=== PATIENT | male | born 1935 | race Caucasian/White ===

== ENCOUNTER 2016-11-15 07:20 | Emergency (ER) | payer MEDICARE, BC ==
[~2016-11-15 07:20] MED LIST: ALBUTEROL2.5 MG/3 M IH; ARFORMOTEROL IH; BP Medication; BYSTOLIC10 MG PO; LEVAQUIN 750MG750 M1 PO; LISINOPRIL20 MG PO; MUCINEX 60600 MG/TA1 PO; PREDNISONE10 MG PO; PREDNISONE20 MG PO; PROVENTIL0.09 MG/A1 IH; PULMICORT0.5 MG/2 M IH; RT ALBUTEROL CC18 GM IH; ZITHROMAX 250M250 MG PO
[2016-11-15] MEDS ORDERED: COZAAR100 MG PO (08:22)
[2016-11-15] MEDS ORDERED: LISINOPRIL AND1 TA1 PO (08:23)
[2016-11-15] MEDS ORDERED: AMARYL PO (08:23)
[2016-11-15] MEDS ORDERED: PROVENTIL0.09 MG/A1 INH (08:24)
[2016-11-15] MEDS ORDERED: MUCINEX 60600 MG/TA1 PO (08:25)
[2016-11-15] MEDS ORDERED: LEADER NATUR1000 MCG PO (08:26)
[2016-11-15] MEDS ORDERED: BROVANA15 MCG/2 M IH (08:27)
[2016-11-15 10:40] VITALS: BP 137/75
== END 2016-11-15 10:04 | disposition other institution (70) ==
LOC: ED 07:20
DX: J44.1 Chronic obstructive pulmonary disease with (acute) exacerbation (principal); R09.02 Hypoxemia; E11.9 Type 2 diabetes mellitus without complications; I10 Essential (primary) hypertension; Z87.891 Personal history of nicotine dependence
CPT/HCPCS: J2930

== ENCOUNTER 2016-11-15 09:52 | Inpatient (IN) | payer MEDICARE, BC ==
[~2016-11-15 09:52] MED LIST changes: +AMARYL PO; +BROVANA15 MCG/2 M IH; +COZAAR100 MG PO; +LEADER NATUR1000 MCG PO; +LISINOPRIL AND1 TA1 PO; +PROVENTIL0.09 MG/A1 INH
[2016-11-15 10:39] VITALS: BP 137/75
[2016-11-15 15:14] VITALS: BP 118/66
[2016-11-15 18:54] VITALS: BP 117/71
[2016-11-15 23:19] VITALS: BP 105/55
[2016-11-16 02:42] VITALS: BP 104/53
[2016-11-16 06:28] VITALS: BP 128/58
[2016-11-16 11:30] VITALS: BP 133/72
[2016-11-16 14:59] VITALS: BP 145/81
[2016-11-16 18:53] VITALS: BP 148/83
[2016-11-16 23:00] VITALS: BP 131/64
[2016-11-17 02:55] VITALS: BP 117/66
[2016-11-17 06:23] VITALS: BP 146/75
[2016-11-17] MEDS ORDERED: RT SPIRIVA INH18 MCG IH (10:48)
[2016-11-17] MEDS ORDERED: BUDESONIDE0.5 MG/2 M IH (10:49)
[2016-11-17] MEDS ORDERED: PREDNISONE10 MG PO (10:51)
[2016-11-17 11:17] VITALS: BP 122/61
== END 2016-11-17 13:53 | disposition home or self-care (01) | DRG 192 ==
LOC: MED/SURG 09:52
PROVIDERS: ADMIT Physician Assistant
DX: J44.1 Chronic obstructive pulmonary disease with (acute) exacerbation (principal); R09.02 Hypoxemia; Z66 Do not resuscitate; E11.9 Type 2 diabetes mellitus without complications; I10 Essential (primary) hypertension; Z87.891 Personal history of nicotine dependence; Z79.84 Long term (current) use of oral hypoglycemic drugs; Z99.81 Dependence on supplemental oxygen
CPT/HCPCS: J1650; J1815; J2930

== ENCOUNTER → 2016-11-25 | Outpatient (CLI) | payer MEDICARE, BC ==
[~2016-11-25] MED LIST changes: +BUDESONIDE0.5 MG/2 M IH; +RT SPIRIVA INH18 MCG IH
== END ==
LOC: LAB 07:46
DX: R97.20 Elevated prostate specific antigen [PSA] (principal); E11.9 Type 2 diabetes mellitus without complications

== ENCOUNTER → 2017-05-03 | Day surgery (SDC) | payer MEDICARE, BC | LOC: MSO 07:21 | DX: H25.11 Age-related nuclear cataract, right eye (principal); I10 Essential (primary) hypertension; J44.9 Chronic obstructive pulmonary disease, unspecified; F17.210 Nicotine dependence, cigarettes, uncomplicated; Z99.81 Dependence on supplemental oxygen; E11.8 Type 2 diabetes mellitus with unspecified complications; Z79.84 Long term (current) use of oral hypoglycemic drugs | CPT/HCPCS: 00142; A9270-GY; J0171; V2632; V2797 ==

== ENCOUNTER → 2017-05-31 | Outpatient (CLI) | payer MEDICARE, BC | LOC: LAB 10:38 | DX: E11.9 Type 2 diabetes mellitus without complications (principal); I10 Essential (primary) hypertension; J43.9 Emphysema, unspecified ==

== ENCOUNTER → 2017-05-31 | Day surgery (SDC) | payer MEDICARE, BC | LOC: MSO 07:59 | DX: H25.12 Age-related nuclear cataract, left eye (principal); E11.36 Type 2 diabetes mellitus with diabetic cataract; Z79.84 Long term (current) use of oral hypoglycemic drugs; I10 Essential (primary) hypertension; J44.9 Chronic obstructive pulmonary disease, unspecified; F17.210 Nicotine dependence, cigarettes, uncomplicated; Z99.81 Dependence on supplemental oxygen | CPT/HCPCS: 00142; A9270-GY; J0171; J2550; V2632; V2797 ==

== ENCOUNTER 2017-08-12 23:24 | Observation (INO) | payer MEDICARE, BC ==
[~2017-08-12] VITALS: Ht 170.2 cm; Wt 52.7 kg
[2017-08-12 23:53] LABS: EOS # 0.1 (0.04-0.40); EOS % 0.7 % (0.0-4.0); HEMATOCRIT 24.2 % (42.0-52.0); LYMPH# 1.6 (1.50-4.00); MEAN CELL VOLUME 101 fl (78-100); MEAN CORPUSCULAR HEMOGLOBIN 32 pg (27-31); MEAN CORPUSCULAR HGB CONC 32 g/dL (33-37); MEAN PLATELET VOLUME 9.3 fl (7.4-10.4); MONO # 0.7 (0.20-0.80); NEU # 8.4 (1.40-6.50); PLATELET COUNT 306 K/mm3 (130-400); RED CELL DISTRIBUTION WIDTH 12.2 % (11.5-14.5); WHITE BLOOD COUNT 10.8 K/mm3 (4.8-10.8)
[2017-08-12 23:59] LABS: HEMOGLOBIN 7.7 g/dL (13.5-18.0)
[2017-08-13] VITALS (29 sets, daily range): BP systolic 80–133; BP diastolic 51–92
[2017-08-13 00:08] LABS: ALBUMIN 3.1 g/dL (3.5-5.0); POTASSIUM 5.4 mmol/L (3.6-5.0); TOTAL PROTEIN 5.6 g/dL (6.3-8.2)
[2017-08-13 00:09] LABS: TOTAL BILIRUBIN 0.3 mg/dL (0.2-1.3)
--- NOTE | 2017-08-13 00:30 | NUR ---
PATIENT ADMITTED TO OBSERVATION ROOM 205 AT THIS TIME. PATIENT IS TRANSPORTED VIA WHEELCHAIR. PATIENT REMAINS MILDLY WEAK AND MODERATELY SOB, ESPECIALLY UPON EXERTION, BUT RECOVERS AFTER SOME REST AND HOB ELEVATION. PATIENT IS INCREASED TO 5L/MIN O2 VIA NC DUE TO SLOW RECOVERY AFTER THE INITIAL TRANSFER TO INPATIENT BED. AFTER GETTING COMFORTABLE AND RESTING, PATIENT IS DECREASED BACK DOWN TO 3 L/MIN. PATIENT REQUIRES STANDBY TO X1 ASSIST. HOB ELEVATED TO A 75 DEGREE ANGLE. BED RAILS UP X2. BED ALARM ARMED. CALL LIGHT WITHIN REACH. PATIENT ORIENTED TO ROOM. CLOSE MONITORING AND HOURLY ROUNDING IMPLEMENTED.
[2017-08-13] MEDS ORDERED: AMARYL 2MG T2 MG/TAB PO (01:53)
[2017-08-13] MEDS ORDERED: ZESTORETIC 25 M1 TAB PO (01:53)
[2017-08-13] MEDS ORDERED: BUDESONIDE0.25 MG/2 (01:54)
[2017-08-13] MEDS ORDERED: BROVANA15 MCG/2 M (01:55)
[2017-08-13] MEDS ORDERED: PROAIR HFA0.09 MG/AC IH (01:56)
[2017-08-13] MEDS ORDERED: ASPIRIN 81M81 MG/TA2 PO (01:58)
[2017-08-13] MEDS ORDERED: BROVANA15 MCG/2 M IH (01:58)
[2017-08-13] MEDS ORDERED: PULMICORT0.5 MG/2 M IH (01:58)
--- NOTE | 2017-08-13 03:07 | NUR ---
Resting in bed, bed alarm set. Oriented to room and call light system. Instructed pt to please use call light when needing to get up out of bed, pt agreed. and daughter at bed side. 0135 Int started in left medial forearm. IV catheter used 18 gauge. Tolerated without difficulty. 0140 Bandaid noted on left upper coccyx. Bandaid removed. Skin abrasion noted on left posterior aspect of iliac crest. Size 0.5cm, skin pink in color. Abrasion cleaned with wound cleanser and hydrocolliod dressing. 0200 C/o of feeling SOB, from answering admission, Oxygen increased from 3 liters to 4 Liters per pt request. Sa02 99-100% on 3L/NC. 0305 Sa02 100%, respirations 18, pulse 107. States he "feels better."
--- NOTE | 2017-08-13 03:42 | NUR ---
[facility] START[facility] AT THIS [facility]. PATIENT SIGNS CONSENT AND UNDERSTANDS EDUCATION PROVIDED. PATIENT DOES NOT APPEAER TO BE IN ANY OBVIOUS DISTRESS AT THIS TIME.
--- NOTE | 2017-08-13 05:53 | NUR ---
PATIENT CONTINUES TO REST IN BED QUIETLY. PATIENT DOES NOT APPEAR TO BE IN ANY OBVIOUS DISTRESS AT THIS TIME. PATIENT STATES "I FEEL MUCH BETTER ALREADY". PATIETN IS ALERT AND ORIENTED, PLEASANT AND COOPERATIVE. PATIENT SHIFTS HIS POSITION INDEPENDENTLY THROUGHOUT THE NIGHT. PATIENT CONTINUES TO RECEIVE BLOOD PRODUCTS AT THIS TIME. PATIENT IS ALSO ON CONTINUOUS VITALS MONITORING. PATIENT ALSO CONTINUES ON O2 THERAPY AT 3L/MIN VIA NC. HOB ELEVATED AT A 30 DEGREE ANGLE. BED RAILS UP X2. CALL LIGHT WITHIN REACH. BED ALARM ARMED AT ALL TIMES. CLOSE MONITORING AND Q30 MINUTE ROUNDING CONTINUE AT THIS TIME.
--- NOTE | 2017-08-13 06:40 | NUR ---
1ST BAG OF [facility] FINISHED INFUSING. PATIENT TOLERATED WELL WITH NO EFFECTS. PATIENT DOES NOT APPEAR TO BE IN ANY OBVIOUS DISTRESS. HIS SKIN IS MORE PINK AND NOT PALE IN THE ER.
--- NOTE | 2017-08-13 07:06 | NUR ---
REPORT GIVEN TO HILTON Fraser RN.
--- NOTE | 2017-08-13 07:20 | NUR ---
REPORT RECEIVED FROM HAFSA LITTLE
--- NOTE | 2017-08-13 07:20 | NUR ---
2ND UNIT OF [facility] STARTED. RATE INCREASED TO 125 ML/HR AFTER NO REACTION NOTED THE FIRST 15 MINUTES.
--- NOTE | 2017-08-13 07:45 | NUR ---
REPORT RECEIVED FROM HAFSA LITTLE. 2ND UNIT [facility] STARTED AT 0720 BY HAFSA LITTLE AND RN REMAINED AT PATIENT'S BEDSIDE DURING FIRST 15 MINUTES OF INFUSION PER POLICY. PATIENT'S BLOOD INFUSING AT 125MLS/HR. PATIENT CARE ASSUMED.
--- NOTE | 2017-08-13 07:55 | NUR ---
PATIENT'S SHIFT ASSESSMENT COMPLETE. PATIENT ALERT AND ORIENTED X4. DENIES ANY PAIN OR DISCOMFORTS AT THIS TIME. PATIENT HAS TRANSFUSION OF [facility] INFUSING AT 125 MLS/HR TO IV IN LEFT FOREARM. PATIENT TOLERATING TRANSFUSION WELL. NO ADVERSE REACTION NOTED AT THIS TIME. PATIENT ON EVERY 15 MINUTE VITAL SIGNS. PATIENT ON OXYGEN VIA NASAL CANNULA 2L. WHEN ASKED IF HE WAS EXPERIENCING SHORTNESS OF BREATH STATES "DID BEFORE". WHEN ASKED IF DIFFICULTY BREATHING HAS GOTTEN ANY BETTER AFTER GETTING BLOOD STATES THAT HE "THINKS IT HAS" REPORTS HAVING SHORTNESS OF BREATH UPON EXERTION. LUNGS DIMINISHED IN ALL [place]AR[place]. PATIENT HAS DUODERM DRESSING TO LEFT BUTTOCK. PATIENT'S BOWEL SOUNDS AUDIBLE IN ALL QUADRANTS. CALL LIGHT WITHIN REACH. BED ALARM ON.
--- NOTE | 2017-08-13 08:30 | NUR ---
IN TO SEE PATIENT.
--- NOTE | 2017-08-13 08:45 | NUR ---
PATIENT'S NORMAL SALINE BOLUS STARTED AT THIS TIME PER 'S ORDERS FOR PATIENT'S LOW BLOOD PRESSURES AND INCREASED POTASSIUM.
[2017-08-13 09:02] LABS: BUN/CREATININE RATIO 39.8 (6.0-26.0); CALCIUM 7.9 mg/dL (8.4-10.2); POTASSIUM 5.4 mmol/L (3.6-5.0)
--- NOTE | 2017-08-13 09:15 | NUR ---
PATIENT'S TRANSFUSION RUNNING AT 125 MLS/HR WITHOUT DIFFICULTY. NO ADVERSE REACTION NOTED AT THIS TIME. CONTINUING TO OBTAIN EVERY 15 MIN VITAL SIGNS. WILL CONTINUE TO MONITOR PATIENT.
--- NOTE | 2017-08-13 09:45 | NUR ---
IN WITH PATIENT AT THIS TIME.
--- NOTE | 2017-08-13 10:13 | NUR ---
PATIENT'S SECOND BLOOD TRANSFUSION DONE AT THIS TIME. VITAL SIGNS TEMP 98.4 TEMPORAL,HEART RATE 85,SPO2 100% ON 2L OXYGEN VIA NASAL CANNULA. BLOOD PRESSURE 100/56, RR 18. PATIENT TOLERATED INFUSION WELL. NO ADVERSE REACTION NOTED AT THIS TIME.
[2017-08-13 11:21] LABS: HEMATOCRIT 28.4 % (42.0-52.0); HEMOGLOBIN 9.6 g/dL (13.5-18.0); MEAN CELL VOLUME 97 fl (78-100); MEAN CORPUSCULAR HEMOGLOBIN 33 pg (27-31); MEAN CORPUSCULAR HGB CONC 34 g/dL (33-37); MEAN PLATELET VOLUME 8.9 fl (7.4-10.4); PLATELET COUNT 191 K/mm3 (130-400); RED BLOOD COUNT 2.94 M/mm3 (4.20-5.60); RED CELL DISTRIBUTION WIDTH 13.1 % (11.5-14.5); WHITE BLOOD COUNT 11.9 K/mm3 (4.8-10.8)
[2017-08-13 11:41] LABS: BAND 0 % (0-10); LYMPHOCYTE 9 % (20-51); MONOCYTE 5 % (3-10); NEUTROPHILS 86 % (42-75)
--- NOTE | 2017-08-13 18:00 | NUR ---
[facility] HE[facility] UN[facility] LEAD PSYCHOLOGIST REPORTED THAT THE LAST TIME PATIENT WAS TAKEN TO THE BATHROOM PATIENT HAD BLOODY LARGE BOWEL MOVEMENT. STOOL WAS VERY DARK RED BLOOD. MENTAL HEALTH UNIT LEAD PSYCHOLOGIST REPORTS THAT ENTIRE TOILET BOWEL WAS COVERED IN BLOOD. NOTIFIED. VITAL SIGNS OBTAINED.
--- NOTE | 2017-08-13 18:00 | NUR ---
PATIENT HAS ASKED SEVERAL TIMES THROUGHOUT THE DAY ABOUT WHAT IS CAUSING HIM TO BE BLEEDING AND IF IT WAS THE ASPIRIN THAT HE WAS TAKING. STATES THAT HE "ISN'T GOING TO TAKE ASPIRIN ANYMORE AFTER THIS I WAS JUST TAKING IT BECAUSE MY TOOTH WAS HURTING BUT IT STOPPED HURTING" PATIENT ASKED THIS NURSE ABOUT TAKING ALEVE INSTEAD OF ASPIRIN. STATES "I'VE HEARD THAT ALEVE WORKS PRETTY GOOD AND IS BETTER THAN ASPIRIN DO YOU THINK IT'S OKAY IF I TOOK THAT" PATIENT EDUCATED ON ASPIRIN AND ALEVE. INFORMED PATIENT THAT ALEVE ALSO HAS THE RISK OF CAUSING GI BLEEDING AND ULCERS. IMPORTANCE OF STOPPING ASPIRIN STRESSED TO PATIENT. PATIENT REPORTS TO THIS NURSE THAT HE HAS BEEN TAKING MASSIEL ASPIRIN 325MG TABLETS A COUPLE TIMES A DAY FOR TOOTH PAIN.
[2017-08-13 18:36] LABS: EOS # 0.1 (0.04-0.40); EOS % 0.9 % (0.0-4.0); HEMATOCRIT 28.7 % (42.0-52.0); HEMOGLOBIN 9.7 g/dL (13.5-18.0); LYMPH# 1.2 (1.50-4.00); MEAN CELL VOLUME 95 fl (78-100); MEAN CORPUSCULAR HEMOGLOBIN 32 pg (27-31); MEAN CORPUSCULAR HGB CONC 34 g/dL (33-37); MEAN PLATELET VOLUME 9.6 fl (7.4-10.4); MONO # 0.9 (0.20-0.80); PLATELET COUNT 197 K/mm3 (130-400); RED BLOOD COUNT 3.01 M/mm3 (4.20-5.60); RED CELL DISTRIBUTION WIDTH 13.5 % (11.5-14.5); WHITE BLOOD COUNT 10.3 K/mm3 (4.8-10.8)
[2017-08-13 19:02] LABS: BUN/CREATININE RATIO 41.9 (6.0-26.0); CALCIUM 7.9 mg/dL (8.4-10.2); POTASSIUM 4.6 mmol/L (3.6-5.0)
--- NOTE | 2017-08-13 19:11 | NUR ---
REPORT GIVEN TO HAFSA DUMONT
--- NOTE | 2017-08-13 19:15 | NUR ---
Report received from Michael Salcedo RN and care assumed at this time. Pt resting in bed, no needs or concerns at this time. Call light in reach, bed alarm on.
--- NOTE | 2017-08-13 20:06 | NUR ---
Pt's IV had been pulled most of the way out accidentally by pt. IV removed from left forearm. New IV started in right forearm.
--- NOTE | 2017-08-14 00:26 | NUR ---
Pt resting in bed with eyes closed and no signs of distress or discomfort noted. Call light in reach, bed alarm on, oxygen remains in place at 2 L/min via nasal canula.
--- NOTE | 2017-08-14 01:07 | NUR ---
Report given to Adriana Joy, AIR HOSE COUPLER and care transferred at this time.
--- NOTE | 2017-08-14 01:17 | NUR ---
Report recieved from Shauna PEREYRA. Patient resting with eyes closed. IVF infusing at 100 ML/HR. No signs of pain or distress.
[2017-08-14 03:20] VITALS: BP 92/55
--- NOTE | 2017-08-14 04:04 | NUR ---
Rests with eyes closed. No signs of pain or distress. IVF infusing at 100 ML/HR.
--- NOTE | 2017-08-14 05:44 | NUR ---
Up to BR with SBA. Voids 400 ML clear yellow urine. Passing alot of gas. Assisted back to bed. Denies pain. Requests and given cup of coffee. Bed alarm on. Call light in reach.
[2017-08-14 06:29] VITALS: BP 106/53
[2017-08-14 06:57] LABS: BASO # 0.1 (0.02-0.10); EOS # 0.4 (0.04-0.40); EOS % 4.2 % (0.0-4.0); HEMATOCRIT 26.2 % (42.0-52.0); HEMOGLOBIN 8.5 g/dL (13.5-18.0); LYMPH# 1.2 (1.50-4.00); MEAN CELL VOLUME 97 fl (78-100); MEAN CORPUSCULAR HEMOGLOBIN 32 pg (27-31); MEAN CORPUSCULAR HGB CONC 32 g/dL (33-37); MEAN PLATELET VOLUME 9.3 fl (7.4-10.4); MONO # 0.6 (0.20-0.80); NEU # 6.4 (1.40-6.50); PLATELET COUNT 186 K/mm3 (130-400); RED CELL DISTRIBUTION WIDTH 13.4 % (11.5-14.5); WHITE BLOOD COUNT 8.6 K/mm3 (4.8-10.8)
--- NOTE | 2017-08-14 07:02 | NUR ---
Report to Dang PEREYRA.
[2017-08-14 07:09] LABS: CALCIUM 7.9 mg/dL (8.4-10.2); POTASSIUM 4.2 mmol/L (3.6-5.0)
--- NOTE | 2017-08-14 07:10 | NUR ---
REPORT RECEIVED FROM TOÑA COLES LPN.
--- NOTE | 2017-08-14 07:45 | NUR ---
Patient's shift assessment complete. patient alert and oriented x4. denies any pain or discomforts at this time. reports that he had a good night and that he slept really well. reports that he is "feeling a little better" today. on oxygen via nasal cannula at 2.5 L. patient's color pale has dark circles around eyes.
--- NOTE | 2017-08-14 09:30 | NUR ---
GIANFRANCO GREEN APRN IN WITH PATIENT AT THIS TIME. CODE STATUS DISCUSSED. COPY OF PATIENT'S LIVING WILL OBTAINED FROM 'S OFFICE AND PLACED IN PATIENT'S PAPER CHART.
--- NOTE | 2017-08-14 09:30 | NUR ---
GIANFRANCO ALFONSO APRN IN WITH PATIENT AT THIS TIME. CODE STATUS DISCUSSED. COPY OF PATIENT'S LIVING WILL OBTAINED FROM 'S OFFICE AND PLACED IN PATIENT'S PAPER CHART.
--- NOTE | 2017-08-14 09:45 | NUR ---
patient up to bathroom. had large bloody soft formed bowel movement. stool very dark red. ephraim saba aprn notified.
--- NOTE | 2017-08-14 10:45 | NUR ---
AT PATIENT'S BEDSIDE. L
--- NOTE | 2017-08-14 11:00 | NUR ---
in to see patient. doctor thinks cause of bleeding is from the aspirin patient had been taking which has been stopped. plan is for patient to continue taking iv protonix. recheck labs tomorrow morning. and that plan is for patient to be discharged tomorrow if his hemoglobin level remains stable.
[2017-08-14 11:02] VITALS: BP 140/69
--- NOTE | 2017-08-14 14:00 | NUR ---
patient ambulated in the [place]. ambulated approximately 150 ft ambulates standby assist with gait belt. on oxygen via nasal cannula at 3L. sp02 in the upper 90's prior to walking. sp02 went down to 84% with ambulation. patient reported that he started feeling short of breath towards the end of walk. reported that he did not feel anymore short of breath during walk than his baseline. reports that the amount of distance he was able to tolerate is what he is able to do at home. reports feeling ready to go home tomorrow.
[2017-08-14 15:15] VITALS: BP 128/67
--- NOTE | 2017-08-14 16:00 | NUR ---
patient up to bathroom. had medium soft formed bloody bowel movement. stool very dark red. voided 450 mls of clear yellow urine
--- NOTE | 2017-08-14 17:10 | NUR ---
Spoke w/ Dr Stallworth about pt being over 24 hrs of OBS stay, Dr Stallworth states that he wishes to check pt's H&H in am and if it is stable pt will be discharged to home and at this time his plan is to keep pt in OBS stay.
[2017-08-14 17:51] VITALS: BP 134/74
--- NOTE | 2017-08-14 19:20 | NUR ---
report given to jacob robertson
--- NOTE | 2017-08-14 22:00 | NUR ---
PATIENT RESTING IN BED. SHIFT ASSESSMENT COMPLETED AT THIS TIME. PATIENT A/O X4, DENIES PAIN. LUNGS CTA, DYSPNEA NOTED WITH AMBULATION AND PATIENT STATES PRODUCTIVE COUGH "HERE AND THERE" WITH WHITE, THICK SPUTUM. O2 @ 2.5 LITERS VIA NASAL CANNULA. BILAT ELBOWS DRY, FLAKY, AND REDDENED. 18 G INT IN RIGHT FA FLUSHES EASILY WITH GOOD BLOOD RETURN, DRESSING CDI. PATIENT STATES HE IS HOPING HE GETS TO GO HOME TOMORROW. PATIENT WITHOUT NEEDS. CALL LIGHT WITHIN REACH AND BED ALARM ON.
[2017-08-14 23:21] VITALS: BP 109/55
[2017-08-15 02:47] VITALS: BP 129/75
[2017-08-15 06:10] LABS: EOS # 0.4 (0.04-0.40); EOS % 4.1 % (0.0-4.0); HEMATOCRIT 29.7 % (42.0-52.0); HEMOGLOBIN 9.6 g/dL (13.5-18.0); LYMPH# 1.2 (1.50-4.00); MEAN CELL VOLUME 98 fl (78-100); MEAN CORPUSCULAR HEMOGLOBIN 32 pg (27-31); MEAN CORPUSCULAR HGB CONC 32 g/dL (33-37); MEAN PLATELET VOLUME 9.2 fl (7.4-10.4); MONO # 0.6 (0.20-0.80); NEU # 6.4 (1.40-6.50); PLATELET COUNT 232 K/mm3 (130-400); RED BLOOD COUNT 3.02 M/mm3 (4.20-5.60); RED CELL DISTRIBUTION WIDTH 13.4 % (11.5-14.5); WHITE BLOOD COUNT 8.7 K/mm3 (4.8-10.8)
[2017-08-15 06:21] LABS: BUN/CREATININE RATIO 25.9 (6.0-26.0); CALCIUM 8.8 mg/dL (8.4-10.2); POTASSIUM 4.5 mmol/L (3.6-5.0)
[2017-08-15 06:32] VITALS: BP 138/81
[2017-08-15] MEDS ORDERED: PROTONIX I40 MG/VIAL IV (10:01)
[2017-08-15 11:11] VITALS: BP 139/91
--- NOTE | 2017-08-15 13:20 | NUR ---
Patient alert and oriented. Denies pain. States that he is feeling much better now than he did when he was admitted. Assisted with shower before lunch. Clean mepilex dressing applied to open area on left buttock. Patient states that he usually covers it with a bandaid at home. Oxygen at 2.5 liters via nasal cannula. Discharge instructions provided to patient and . Written lab orders provided. Prescription for protonix sent to [facility]. Patient and verbalize understanding and deny questions or needs at this time. Out of facility via wheelchair to POV, patient's own portable oxygen tank at 2.5 liters via nasal cannula. Transfers into PO without incident.
== END 2017-08-15 13:20 | disposition home or self-care (01) ==
LOC: ED 23:24 → MED/SURG 08-13 00:30
PROVIDERS: Nurse Practitioner Family; ADMIT Family Medicine
DX: K92.2 Gastrointestinal hemorrhage, unspecified (principal); T39.015A Adverse effect of aspirin, initial encounter; D50.0 Iron deficiency anemia secondary to blood loss (chronic); J43.9 Emphysema, unspecified; Z87.891 Personal history of nicotine dependence; E11.9 Type 2 diabetes mellitus without complications; Z99.81 Dependence on supplemental oxygen; I10 Essential (primary) hypertension; Z79.84 Long term (current) use of oral hypoglycemic drugs
CPT/HCPCS: C9113; G0378; J3490; J7030; J7040; P9016

== ENCOUNTER → 2017-08-21 | Outpatient (CLI) | payer MEDICARE, BC ==
[2017-08-15 11:11] VITALS: BP 139/91
[~2017-08-21] MED LIST changes: +AMARYL 2MG T2 MG/TAB PO; +ASPIRIN 81M81 MG/TA2 PO; +BROVANA15 MCG/2 M; +BUDESONIDE0.25 MG/2; +PROAIR HFA0.09 MG/AC IH; +PROTONIX I40 MG/VIAL IV; +ZESTORETIC 25 M1 TAB PO
[2017-08-21 09:05] LABS: HEMATOCRIT 32.6 % (42.0-52.0); HEMOGLOBIN 10.3 g/dL (13.5-18.0); MEAN PLATELET VOLUME 8.5 fl (7.4-10.4); RED BLOOD COUNT 3.21 M/mm3 (4.20-5.60); WHITE BLOOD COUNT 7.5 K/mm3 (4.8-10.8)
[2017-08-21 09:14] LABS: ALBUMIN 3.9 g/dL (3.5-5.0); BUN/CREATININE RATIO 19.8 (6.0-26.0); CALCIUM 8.8 mg/dL (8.4-10.2); POTASSIUM 4.2 mmol/L (3.6-5.0); TOTAL BILIRUBIN 0.5 mg/dL (0.2-1.3); TOTAL PROTEIN 6.9 g/dL (6.3-8.2)
== END ==
LOC: LAB 08:48
PROVIDERS: Physician Assistant
DX: D64.9 Anemia, unspecified (principal); R06.00 Dyspnea, unspecified; E11.9 Type 2 diabetes mellitus without complications; Z87.19 Personal history of other diseases of the digestive system

== ENCOUNTER → 2017-09-04 | Outpatient (CLI) | payer MEDICARE, BC ==
[2017-08-15 11:11] VITALS: BP 139/91
[2017-09-04 08:58] LABS: EOS # 0.2 (0.04-0.40); EOS % 2.1 % (0.0-4.0); HEMATOCRIT 34.7 % (42.0-52.0); HEMOGLOBIN 10.7 g/dL (13.5-18.0); LYMPH# 0.9 (1.50-4.00); MEAN CELL VOLUME 102 fl (78-100); MEAN CORPUSCULAR HEMOGLOBIN 31 pg (27-31); MEAN CORPUSCULAR HGB CONC 31 g/dL (33-37); MEAN PLATELET VOLUME 8.3 fl (7.4-10.4); MONO # 0.4 (0.20-0.80); NEU # 5.6 (1.40-6.50); PLATELET COUNT 257 K/mm3 (130-400); RED BLOOD COUNT 3.42 M/mm3 (4.20-5.60); RED CELL DISTRIBUTION WIDTH 12.9 % (11.5-14.5); WHITE BLOOD COUNT 7.1 K/mm3 (4.8-10.8)
[2017-09-04 09:23] LABS: ALBUMIN 4.1 g/dL (3.5-5.0); BUN/CREATININE RATIO 20.1 (6.0-26.0); CALCIUM 8.8 mg/dL (8.4-10.2); POTASSIUM 4.3 mmol/L (3.6-5.0); TOTAL BILIRUBIN 0.5 mg/dL (0.2-1.3); TOTAL PROTEIN 7.4 g/dL (6.3-8.2)
== END ==
LOC: LAB 08:47
PROVIDERS: Internal Medicine
DX: I10 Essential (primary) hypertension (principal); E11.9 Type 2 diabetes mellitus without complications; D64.9 Anemia, unspecified

== ENCOUNTER → 2017-10-09 | Outpatient (CLI) | payer MEDICARE, BC ==
[2017-10-09 12:12] LABS: HEMATOCRIT 36.9 % (42.0-52.0); HEMOGLOBIN 11.5 g/dL (13.5-18.0); MEAN CELL VOLUME 100 fl (78-100); MEAN CORPUSCULAR HEMOGLOBIN 31 pg (27-31); MEAN CORPUSCULAR HGB CONC 31 g/dL (33-37); MEAN PLATELET VOLUME 8.7 fl (7.4-10.4); PLATELET COUNT 381 K/mm3 (130-400); RED BLOOD COUNT 3.71 M/mm3 (4.20-5.60); RED CELL DISTRIBUTION WIDTH 12.7 % (11.5-14.5); WHITE BLOOD COUNT 9.5 K/mm3 (4.8-10.8)
[2017-10-09 12:18] LABS: ALBUMIN 4.2 g/dL (3.5-5.0); BUN/CREATININE RATIO 17.5 (6.0-26.0); CALCIUM 9.2 mg/dL (8.4-10.2); POTASSIUM 4.5 mmol/L (3.6-5.0); TOTAL BILIRUBIN 0.5 mg/dL (0.2-1.3)
[2017-10-09 12:45] LABS: LYMPHOCYTE 11 % (20-51); MONOCYTE 2 % (3-10); NEUTROPHILS 87 % (42-75)
== END ==
LOC: LAB 11:47
PROVIDERS: Internal Medicine
DX: D50.8 Other iron deficiency anemias (principal); E11.9 Type 2 diabetes mellitus without complications; J43.8 Other emphysema

== ENCOUNTER → 2018-01-08 | Outpatient (CLI) | payer MEDICARE, BC ==
[2018-01-08 11:16] LABS: HEMATOCRIT 37.9 % (42.0-52.0); HEMOGLOBIN 12.1 g/dL (13.5-18.0); MEAN CELL VOLUME 96 fl (78-100); MEAN CORPUSCULAR HEMOGLOBIN 31 pg (27-31); MEAN CORPUSCULAR HGB CONC 32 g/dL (33-37); PLATELET COUNT 357 K/mm3 (130-400); RED BLOOD COUNT 3.95 M/mm3 (4.20-5.60); RED CELL DISTRIBUTION WIDTH 14.8 % (11.5-14.5); WHITE BLOOD COUNT 9.9 K/mm3 (4.8-10.8)
[2018-01-08 11:25] LABS: ALBUMIN 4.6 g/dL (3.5-5.0); BUN/CREATININE RATIO 20.5 (6.0-26.0); CALCIUM 8.6 mg/dL (8.4-10.2); POTASSIUM 3.8 mmol/L (3.6-5.0); TOTAL BILIRUBIN 0.3 mg/dL (0.2-1.3); TOTAL PROTEIN 8.3 g/dL (6.3-8.2)
[2018-01-08 12:02] LABS: LYMPHOCYTE 10 % (20-51); MONOCYTE 4 % (3-10); NEUTROPHILS 84 % (42-75); OVALOCYTES 2+
[2018-01-08 13:31] LABS: ERYTHROCYTE SEDIMENTATION RATE 1 mm/hr (0-20)
[2018-01-09 02:39] LABS: TESTOSTERONE 345 ng/dL (221-716)
== END ==
LOC: LAB 10:57
PROVIDERS: Internal Medicine
DX: E11.9 Type 2 diabetes mellitus without complications (principal); D50.0 Iron deficiency anemia secondary to blood loss (chronic); Z12.5 Encounter for screening for malignant neoplasm of prostate; N52.9 Male erectile dysfunction, unspecified; Z12.11 Encounter for screening for malignant neoplasm of colon

== ENCOUNTER → 2018-01-15 | Outpatient (CLI) | payer MEDICARE, BC | LOC: LAB 14:09 | DX: N52.9 Male erectile dysfunction, unspecified (principal); Z12.11 Encounter for screening for malignant neoplasm of colon; D50.0 Iron deficiency anemia secondary to blood loss (chronic); Z88.6 Allergy status to analgesic agent ==

== ENCOUNTER → 2018-04-02 | Outpatient (CLI) | payer MEDICARE, BC ==
[2018-04-02 11:38] LABS: ALBUMIN 4.5 g/dL (3.5-5.0); BUN/CREATININE RATIO 21.1 (6.0-26.0); CALCIUM 8.3 mg/dL (8.4-10.2); POTASSIUM 4.4 mmol/L (3.6-5.0); TOTAL BILIRUBIN 0.4 mg/dL (0.2-1.3); TOTAL PROTEIN 8.1 g/dL (6.3-8.2)
== END ==
LOC: LAB 11:07
PROVIDERS: Internal Medicine
DX: E11.9 Type 2 diabetes mellitus without complications (principal); R97.20 Elevated prostate specific antigen [PSA]

== ENCOUNTER 2018-09-15 09:29 | Emergency (ER) | payer MEDICARE, BC ==
[~2018-09-15] VITALS: Wt 46.7 kg
[2018-09-15 10:08] LABS: HEMATOCRIT 29.1 % (42.0-52.0); HEMOGLOBIN 9.7 g/dL (13.5-18.0); MEAN CELL VOLUME 95 fl (78-100); MEAN CORPUSCULAR HEMOGLOBIN 32 pg (27-31); MEAN CORPUSCULAR HGB CONC 33 g/dL (33-37); MEAN PLATELET VOLUME 9.4 fl (7.4-10.4); PLATELET COUNT 272 K/mm3 (130-400); RED BLOOD COUNT 3.07 M/mm3 (4.20-5.60); RED CELL DISTRIBUTION WIDTH 13.2 % (11.5-14.5); WHITE BLOOD COUNT 17.3 K/mm3 (4.8-10.8)
[2018-09-15] MEDS ORDERED: PROTONIX TR40 M1 PO (10:23)
[2018-09-15 10:24] LABS: ALBUMIN 3.5 g/dL (3.5-5.0); CALCIUM 7.7 mg/dL (8.4-10.2); POTASSIUM 3.6 mmol/L (3.6-5.0); TOTAL BILIRUBIN 0.6 mg/dL (0.2-1.3)
[2018-09-15 10:36] LABS: LYMPHOCYTE 1 % (20-51); MONOCYTE 2 % (3-10); NEUTROPHILS 97 % (42-75)
[2018-09-15 11:15] VITALS: BP 140/53
== END 2018-09-15 11:25 | disposition other institution (70) ==
LOC: ED 09:29
PROVIDERS: Family Medicine
DX: J43.9 Emphysema, unspecified (principal); Z99.81 Dependence on supplemental oxygen; L89.151 Pressure ulcer of sacral region, stage 1; E46 Unspecified protein-calorie malnutrition; N19 Unspecified kidney failure; Z87.891 Personal history of nicotine dependence; E11.9 Type 2 diabetes mellitus without complications; I10 Essential (primary) hypertension; D64.9 Anemia, unspecified

== ENCOUNTER 2018-09-15 11:10 | Inpatient (IN) | payer MEDICARE, BC ==
[~2018-09-15] VITALS: Ht 172.7 cm; Wt 50.6 kg
[2018-09-15] VITALS (9 sets, daily range): BP systolic 85–140; BP diastolic 53–70
[~2018-09-15 11:10] MED LIST changes: +PROTONIX TR40 M1 PO
[2018-09-15 13:04] LABS: URINE APPEARANCE CLEAR; URINE BILIRUBIN NEGATIVE (NEGATIVE); URINE BLOOD 250 ery/uL (NEGATIVE); URINE COLOR YELLOW; URINE GLUCOSE NEGATIVE (NEGATIVE); URINE KETONE NEGATIVE (NEGATIVE); URINE LEUKOCYTE ESTERASE NEGATIVE (NEGATIVE); URINE NITRATE NEGATIVE (NEGATIVE); URINE PROTEIN(semi-quant) 1+ mg/dL (NEGATIVE); URINE UROBILINOGEN NORMAL (NORMAL); URINE WBC 0-1 /hpf (0-3)
[2018-09-16 03:20] VITALS: BP 82/44
[2018-09-16 06:17] VITALS: BP 101/64
[2018-09-16 09:02] LABS: HEMOGLOBIN 8.9 g/dL (13.5-18.0); MEAN CELL VOLUME 95 fl (78-100); MEAN CORPUSCULAR HEMOGLOBIN 31 pg (27-31); MEAN CORPUSCULAR HGB CONC 33 g/dL (33-37); MEAN PLATELET VOLUME 9.5 fl (7.4-10.4); PLATELET COUNT 265 K/mm3 (130-400); RED BLOOD COUNT 2.84 M/mm3 (4.20-5.60); WHITE BLOOD COUNT 14.2 K/mm3 (4.8-10.8)
[2018-09-16 09:09] LABS: CALCIUM 7.2 mg/dL (8.4-10.2); POTASSIUM 4.2 mmol/L (3.6-5.0)
[2018-09-16 09:45] LABS: BAND 1 % (0-10); LYMPHOCYTE 7 % (20-51); MONOCYTE 1 % (3-10); NEUTROPHILS 90 % (42-75)
[2018-09-16 11:11] VITALS: BP 106/67
[2018-09-16 15:27] VITALS: BP 80/51
[2018-09-16 18:43] VITALS: BP 103/63
[2018-09-16 18:49] LABS: CALCIUM 6.9 mg/dL (8.4-10.2); POTASSIUM 4.2 mmol/L (3.6-5.0)
[2018-09-16 22:46] VITALS: BP 94/55
[2018-09-17] VITALS (10 sets, daily range): BP systolic 77–111; BP diastolic 51–66
[2018-09-17 08:52] LABS: HEMOGLOBIN 8.4 g/dL (13.5-18.0); MEAN CELL VOLUME 96 fl (78-100); MEAN CORPUSCULAR HEMOGLOBIN 31 pg (27-31); MEAN CORPUSCULAR HGB CONC 32 g/dL (33-37); MEAN PLATELET VOLUME 9.9 fl (7.4-10.4); PLATELET COUNT 239 K/mm3 (130-400); RED BLOOD COUNT 2.71 M/mm3 (4.20-5.60); RED CELL DISTRIBUTION WIDTH 13.2 % (11.5-14.5); WHITE BLOOD COUNT 13.1 K/mm3 (4.8-10.8)
[2018-09-17 08:58] LABS: POTASSIUM 4.4 mmol/L (3.6-5.0); TOTAL BILIRUBIN 0.6 mg/dL (0.2-1.3); TOTAL PROTEIN 5.3 g/dL (6.3-8.2)
[2018-09-17 09:28] LABS: LYMPHOCYTE 4 % (20-51); MONOCYTE 4 % (3-10); NEUTROPHILS 92 % (42-75); OVALOCYTES 1+
[2018-09-17 15:47] LABS: CALCIUM 6.8 mg/dL (8.4-10.2); POTASSIUM 4.5 mmol/L (3.6-5.0); TOTAL BILIRUBIN 0.5 mg/dL (0.2-1.3); TOTAL PROTEIN 5.4 g/dL (6.3-8.2)
[2018-09-18 02:36] VITALS: BP 89/57
[2018-09-18 06:31] VITALS: BP 83/50
[2018-09-18 11:05] VITALS: BP 88/42
[2018-09-18 15:16] VITALS: BP 59/29
[2018-09-18 18:10] VITALS: BP 80/46
[2018-09-19 03:55] VITALS: BP 93/63
[2018-09-19 11:00] VITALS: BP 60/30
[2018-09-19 15:00] VITALS: BP 77/52
[2018-09-19 18:00] VITALS: BP 80/51
[2018-09-19 23:19] VITALS: BP 81/51
[2018-09-20 02:40] VITALS: BP 53/39
== END 2018-09-20 06:58 | disposition expired | DRG 682 ==
LOC: MED/SURG 11:10
PROVIDERS: Internal Medicine; Nurse Practitioner Primary Care; ADMIT Family Medicine
DX: N17.9 Acute kidney failure, unspecified (principal); J96.00 Acute respiratory failure, unspecified whether with hypoxia or hypercapnia; J44.1 Chronic obstructive pulmonary disease with (acute) exacerbation; E87.2 Acidosis; E46 Unspecified protein-calorie malnutrition; Z66 Do not resuscitate; L89.159 Pressure ulcer of sacral region, unspecified stage; Z51.5 Encounter for palliative care; Z87.891 Personal history of nicotine dependence; E11.22 Type 2 diabetes mellitus with diabetic chronic kidney disease; I12.9 Hypertensive chronic kidney disease with stage 1 through stage 4 chronic kidney disease, or unspecified chronic kidney disease; N18.9 Chronic kidney disease, unspecified
CPT/HCPCS: A4216; J0696; J1650; J1815; J1940; J7030; J7120